=== PATIENT | male | born 1990 | race Caucasian/White ===

== ENCOUNTER 2017-04-11 00:05 | Emergency (ER) | payer OTHER, SELFPAY ==
[2017-04-11 00:08] VITALS: BP 147/79; PULSE 74; RESP 17; TEMP 36.2; O2SAT 95; BMI 30.1
--- NOTE | 2017-04-11 00:31 | RAD_ITS ---
STUDY: X-RAY - LUMBAR SPINE REASON FOR EXAM: Male, 26 years old. Back pain following heavy lifting. TECHNIQUE: 3 view(s) of the lumbar spine were obtained. COMPARISON: None FINDINGS: Normal lumbar lordosis. There is no substantial scoliosis. There is a normal alignment of the vertebrae. Normal vertebral bodies and endplates. There is mild narrowing of L4-L5 disc space. There is no demonstrated fracture. The soft tissue structures are unremarkable. There is questionable small sclerotic lesion in the right ilium close to the sacroiliac joint could be due to bone island. RAD/Lumbar Spine 2 or 3 Views IMPRESSION: Narrowing of L4-L5 disc space. No demonstrated acute osseous changes. Electronically Signed: Asad Kebede MD at 1:14 EST Tel , Service support ,
[2017-04-11] MEDS: Naproxen 500 MG Tablet PO (00:35)
--- NOTE | 2017-04-11 01:04 | ED.VISSUMM ---
- ER Visit Summary Date of Service: 04/11/17 Chief Complaint: Back injury History of Present Illness: The patient is a 26 M presenting for evaluation secondary to a back injury. Patient states that he was lifting a box at work and he had a sudden onset of severe left lower back pain. Patient states that he has some radiation to his left hip and left thigh. Pain was bad enough that he felt that he was unable to ambulate initially. Denies any bowel or bladder incontinence. Denies any prior similar injuries. Review of systems otherwise negative. Physical Examination: Vitals: Within normal limits General: Well-nourished well-developed no acute distress Head: Normocephalic atraumatic ENT: Moist mucous membranes Neck: Supple no JVD Cardiovascular: Heart regular rate and rhythm no murmurs Respiratory: Respirations nondistressed, lung sounds clear to auscultation bilaterally Abdominal: Soft, nontender, nondistended, normal bowel sounds, no evidence of abdominal masses or pulsatile mass Back: Normal to inspection, no midline tenderness to palpation, straight leg raise negative bilaterally, left sided lumbar paraspinal tenderness to palpation Extremities: Nontender, nonedematous, 2+ radial and PT pulses bilaterally symmetric Skin: Normal color no rash Neuro: 5/5 strength hip flexion, knee flexion, knee extension, dorsiflexion, plantarflexion, EHL. Sensation intact over all dermatomes of the lower extremities bilaterally, 2+ patellar and Achilles reflexes bilaterally symmetric, negative clonus bilaterally Test Results: Lumbar x-rays found to be negative per my personal interpretation Emergency Department Course and Treatment: Patient presented secondary to a back injury. Symptoms are most consistent with strain. X-rays were found to be negative. Patient was given Naprosyn in the emergency department, was instructed on use of Naprosyn ice heat and stretching at home. He will follow-up with [facility] as needed. Disposition: Discharge Impression: 1. Lumbosacral strain secondary to lifting injury at work This note was generated with [employer] dictation software. It may contain incorrect words, spelling, and punctuation that were not noted in review of the chart prior to signing ED Disposition - Plan for ED Patient: Disposition: Home or Assisted Living Chief Complaint: Back Diagnosis: Lumbosacral strain Instructions: ED Sprain Strain Lumbar Referrals: [facility] [GROUP OF PHYSICIANS] -
--- NOTE | 2017-04-11 01:08 | ED.DCSUM_ITS ---
- ER Visit Summary Date of Service: 04/11/17 Chief Complaint: Back injury History of Present Illness: The patient is a 26 M presenting for evaluation secondary to a back injury. Patient states that he was lifting a box at work and he had a sudden onset of severe left lower back pain. Patient states that he has some radiation to his left hip and left thigh. Pain was bad enough that he felt that he was unable to ambulate initially. Denies any bowel or bladder incontinence. Denies any prior similar injuries. Review of systems otherwise negative. Physical Examination: Vitals: Within normal limits General: Well-nourished well-developed no acute distress Head: Normocephalic atraumatic ENT: Moist mucous membranes Neck: Supple no JVD Cardiovascular: Heart regular rate and rhythm no murmurs Respiratory: Respirations nondistressed, lung sounds clear to auscultation bilaterally Abdominal: Soft, nontender, nondistended, normal bowel sounds, no evidence of abdominal masses or pulsatile mass Back: Normal to inspection, no midline tenderness to palpation, straight leg raise negative bilaterally, left sided lumbar paraspinal tenderness to palpation Extremities: Nontender, nonedematous, 2+ radial and PT pulses bilaterally symmetric Skin: Normal color no rash Neuro: 5/5 strength hip flexion, knee flexion, knee extension, dorsiflexion, plantarflexion, EHL. Sensation intact over all dermatomes of the lower extremities bilaterally, 2+ patellar and Achilles reflexes bilaterally symmetric , negative clonus bilaterally Test Results: Lumbar x-rays found to be negative per my personal interpretation Emergency Department Course and Treatment: Patient presented secondary to a back injury. Symptoms are most consistent with strain. X-rays were found to be negative. Patient was given Naprosyn in the emergency department, was instructed on use of Naprosyn ice heat and stretching at home. He will follow- up with [facility] as needed. Disposition: Discharge Impression: 1. Lumbosacral strain secondary to lifting injury at work This note was generated with [employer] dictation software. It may contain incorrect words, spelling, and punctuation that were not noted in review of the chart prior to signing ED Disposition - Plan for ED Patient: Disposition: Home or Assisted Living Chief Complaint: Back Diagnosis: Lumbosacral strain Instructions: ED Sprain Strain Lumbar Referrals: [facility] [GROUP OF PHYSICIANS] -
--- NOTE | 2017-04-11 01:39 | ED.RN ---
DISCHARGE INSTRUCTIONS GIVEN TO AND REVIEWED WITH PATIENT, PATIENT DENIES QUESTIONS OR CONCERNS AND VOICES UNDERSTANDING OF DISCHARGE INSTRUCTIONS. PT AMBULATES OUT OF ROOM WITHOUT DIFFICULTY.
== END 2017-04-11 01:40 | disposition home or self-care (01) ==
PROVIDERS: Emergency Provider Emergency Medicine
DX: S39.012A Strain of muscle, fascia and tendon of lower back, initial encounter (principal); Z72.0 Tobacco use; X58.XXXA Exposure to other specified factors, initial encounter; Y93.89 Activity, other specified; Y92.89 Other specified places as the place of occurrence of the external cause; Y99.0 Civilian activity done for income or pay
CPT/HCPCS: 72100; 99283

== ENCOUNTER 2017-06-27 16:04 | Emergency (ER) | payer BC, SELFPAY ==
[2017-06-27 16:05] VITALS: BP 128/90; PULSE 93; RESP 18; TEMP 36.9; O2SAT 95; BMI 30.2
[2017-06-27 16:17] VITALS: O2SAT 95
--- NOTE | 2017-06-27 16:25 | ED.VISSUMM ---
- ER Visit Summary Date of Service: 06/27/17 Chief Complaint: Wheezing History of Present Illness: The patient is a 27 M who has history of asthma presents with URI symptoms for the past 3 days. He complains of rhinorrhea, postnasal drainage, sore throat and nonproductive cough. He states his symptoms started after dental extraction. He is presently on antibiotics secondary to the dental extraction. He denies fever, chills night sweats. Denies headache, photophobia stiffness of his neck. He denies any chest discomfort. He denies leg pain, swelling discoloration. He denies any GI symptoms. Physical Examination: Vital signs are unremarkable. He is not tachycardic, tachypneic, febrile or hypoxic. Head is atraumatic nor cephalic. Pupils equal round reactive. Extra muscles are intact. TMs normal. Nares patent with clear drainage. Posterior pharynx without erythema or exudate. Uvula is midline. Postnasal drainage noted. Trach is midline. There is no stridor. Lungs revealed minimal wheezing with forced expiration the left side and right lower lobe region. There is no egophony or increased vocal fremitus. Heart is regular without murmur, gallop or rub. Insert lower extremity DVT Test Results: None Emergency Department Course and Treatment: MDI with spacer 4 puffs Treatment Plan: Patient has been instructed to use inhaler with spacer. He was informed that for polyps is equivalent to a nebulized treatment. Disposition: Discharged to home Impression: Exacerbation of asthma with bronchospasm secondary to acute viral upper respiratory infection This note was generated with [employer] dictation software. It may contain incorrect words, spelling, and punctuation that were not noted in review of the chart prior to signing ED Disposition - Plan for ED Patient: Disposition: Home or Assisted Living Chief Complaint: Asthma Instructions: ED Bronchitis Asthmatic Referrals: Gilbert Barbosa MD [Primary Care Provider] - 3-5 Days if not improving Additional Instructions: Use spacer with inhaler. 2 puffs every 2-4 hours while awake for the next 2 days. If you are having increased shortness of breath 4 puffs every 15 minutes ?3. If no improvement recommend returning to the emergency department.
[2017-06-27 16:29] VITALS: PULSE 85; RESP 16; O2SAT 95
== END 2017-06-27 16:50 | disposition home or self-care (01) ==
LOC: ED 16:38
PROVIDERS: Emergency Provider Emergency Medicine; Family Provider Family Medicine; PCP Family Medicine
DX: J06.9 Acute upper respiratory infection, unspecified (principal); J45.901 Unspecified asthma with (acute) exacerbation; Z72.0 Tobacco use
CPT/HCPCS: 94640; 99282

== ENCOUNTER → 2017-07-02 10:04 | Outpatient (CLI) | payer BC, SELFPAY ==
--- NOTE | 2017-07-02 10:09 | RAD_ITS ---
STUDY: X-RAY CHEST REASON FOR EXAM: Male, 27 years old. Cough and shortness of breath. Chest pain and chest tightness. TECHNIQUE: PA and lateral views of the chest. COMPARISON: Comparison is made with prior study dated April 28, 2014. FINDINGS: The lungs are clear and expanded. There is no demonstrated pleural abnormality. Normal size heart. Normal mediastinum and ghislaine. Normal visualized pulmonary arteries. Normal visualized aortic arch and descending thoracic aorta. Normal visualized thoracic spine. Normal visualized ribs, clavicles, and shoulders. There is no demonstrated abnormality of the visualized soft tissue structures of the upper abdomen. RAD/Chest PA and Lateral IMPRESSION: Normal x-ray examination of the chest. Electronically Signed: Cooper Brian MD at 15:56 EDT Tel [phone], Service support ,
== END ==
PROVIDERS: Family Provider Family Medicine; PCP Family Medicine; Visit Provider Family Medicine
DX: J20.9 Acute bronchitis, unspecified (principal)
CPT/HCPCS: 71046

== ENCOUNTER 2019-03-12 14:55 | Emergency (ER) | payer BC, SELFPAY ==
[2019-03-12 14:56] VITALS: BP 145/66; PULSE 106; RESP 17; TEMP 37.4; O2SAT 95; BMI 33.5
--- NOTE | 2019-03-12 15:58 | ED.VIS.EYE ---
History of Present Illness Chief Complaint: Eye Problem Informant: Patient Location: Right Eye Onset: Days Timing: Intermittent Associated Symptoms - Eyes: Pain History of injury: No Visual correction: None Narrative: Patient is a 28-year-old male presenting with right eye pain. Patient states for the past 5 days around 230 every afternoon he is getting severe pain in his right eye. He states it feels like it is behind his eye. Patient states it is a sharp sensation. The pain last for about an hour to an hour and a half. He called his PCP to make an appointment to be seen but then was told to come to the emergency room to be evaluated. Patient denies any vision changes. He denies any foreign body sensation to his eye. Patient states he also has some tingling sensation to his right upper cheek. He notes his symptoms are currently subsiding. He denies any other complaints at this time. Past Medical History - Allergies and Home Meds Allergies/Adverse Reactions: Allergies amoxicillin [Amoxicillin] Allergy (Verified 03/12/19 14:56) Other Primary Care Physician: Gilbert Sumner MD [Primary Care Provider] - Past Medical History: None Surgical History: noncontributory Smoking Status: Current some day smoker Review of Systems General: Denies: Chills, Fever, Sweats Eyes: Reports: - - right eye pain . Denies: Visual changes - bilaterally, Diplopia ENT: Denies: Rhinorrhea, Sore throat Cardiovascular: Denies: Chest pain, Palpitations Respiratory: Denies: Dyspnea, Cough, Dyspnea on exertion Gastrointestinal: Denies: Abdominal pain, Nausea, Vomiting, Diarrhea, Melena, Hematochezia Genitourinary: Denies: Dysuria, Hematuria, Frequency Musculoskeletal: Denies: Back pain, Extremity Pain Skin: Denies: Rash, Wounds Neurological: Reports: Headache, Parasthesia - right cheek . Denies: Weakness, Numbness Physical Exam Visual Acuity: right: 20/40, left: 20/20 Visual Acuity: Uncorrected Eyelid: Normal inspection Right Conjunctiva/Sclera: Normal inspection Left Conjunctiva/Sclera: Normal inspection Right Cornea: Normal inspection, No foreign body, No abrasion, No dye uptake Extraocular Motion: Normal exam, No pain Pupils: Normal accomodation, PERRL Anterior chamber: Normal exam Vital Signs/Narrative: Vital Signs Temp Pulse Resp BP Pulse Ox 03/12/19 14:56 99.3 F H 106 H 17 145/66 H 95 General: Well nourished, Well developed Head: Normocephalic, Atraumatic ENT: Moist mucous membranes, No rhinorrhea Neck: Supple, Nontender Cardiovascular: Regular rate, Regular rhythm, No murmurs Respiratory: No distress, CTA bilaterally, Chest nontender Abdomen: Soft, Nontender, Nondistended, Normal bowel sounds Back: Nontender, Normal Inspection Extremities: Nontender, No edema Skin: Normal color, No rash Neurological: Alert, Oriented x3, Cranial nerves II-XII grossly intact, Normal Strength, Normal Sensation. Negative for: Parasthesia Psychological: Normal affect Diagnostic/Tx/Re-eval - Medical Decision Making She is evaluated for headaches and eye pain. His history is actually consistent with cluster headaches. Patient has pain in the same eye every day at the same time. Patient's pain is subsiding while he is in the emergency room however he is placed on a nonrebreather. He does have further improvement of his symptoms. Ophthalmologic exam is relatively normal. He does not have any fluorescein dye uptake, signs of a foreign body or herpes keratitis. Patient not have photophobia and has a normal vision. Do not suspect a retinal detachment at this time. He has no conjunctival injection and I do not suspect acute glaucoma. I did discuss with PCP on-call who recommends starting patient on Imitrex. Patient is given a prescription of this. He is counseled oxygen is also helpful. Patient states he has oxygen at home because of his history of asthma. He will try this as needed as well. Patient is counseled on signs and symptoms requiring return to the emergency room. Patient verbalizes agreement and understand this plan. Patient discharged home in stable and improved condition. ED Disposition - Plan for ED Patient: Disposition: Home or Assisted Living Diagnosis: Cluster headache Instructions: Headache, Cluster Prescriptions: Sumatriptan [Imitrex] 20 mg NS X1 PRN #1 ea PRN Reason: Headache Prescription Printed Referrals: Gilbert Sumner MD [Primary Care Provider] - Additional Instructions: Call PCP office on Friday to schedule follow-up appointment later in the week. Return the emergency room with worsening symptoms.
[2019-03-12 16:24] VITALS: PULSE 82; RESP 14; O2SAT 100
[2019-03-12 17:29] VITALS: PULSE 97; RESP 14; O2SAT 97
[2019-03-12] MEDS: Fluorescein 1 MG STRIP 1 STRIP OPHTHALMIC (17:34)
== END 2019-03-12 17:36 | disposition home or self-care (01) ==
PROVIDERS: Emergency Provider Emergency Medicine; PCP Family Medicine
DX: G44.009 Cluster headache syndrome, unspecified, not intractable (principal); Z88.0 Allergy status to penicillin
CPT/HCPCS: 99282

== ENCOUNTER 2019-05-18 09:07 | Emergency (ER) | payer BC, SELFPAY ==
[2019-05-18 09:00] VITALS: BP 131/84; PULSE 88; RESP 18; TEMP 36.8; O2SAT 98; BMI 31.4
--- NOTE | 2019-05-18 09:15 | ED.VIS.GEN ---
History of Present Illness Chief Complaint: Back Narrative: This patient is a 29-year-old male who presents with back pain. He was rearranging and moving furniture last night. He states he got stuck like his back locked up. 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 His cousin helped him get up and onto the couch of the bed. He thought he would be able to sleep it off. Today he was unable to get up on his own due to pain. His pain is only 4 out of 10 at rest however it is severe when he attempts to sit or stand up. Pain is sharp. It is all isolated to the lower back. No fevers no back surgery no abdominal pain no urinary retention no fecal incontinence no numbness tingling or weakness no radiation to the legs. Past Medical History - Allergies and Home Meds Allergies/Adverse Reactions: Allergies amoxicillin [Amoxicillin] Allergy (Verified 03/12/19 14:56) Other Primary Care Physician: Gilbert Sumner MD [Primary Care Provider] - Past Medical History: None Surgical History: noncontributory Smoking Status: Current every day smoker Review of Systems All systems negative except as indicated General: Denies: Fever Eyes: Denies: Visual changes - bilaterally ENT: Denies: Bilateral ear pain Cardiovascular: Denies: Chest pain Respiratory: Denies: Dyspnea Gastrointestinal: Denies: Nausea, Vomiting Musculoskeletal: Reports: Back pain Skin: Denies: Rash Neurological: Denies: Headache Physical Exam Vital Signs/Narrative: Vital Signs Temp Pulse Resp BP Pulse Ox 05/18/19 09:00 98.3 F 88 18 131/84 H 98 Inital Vital Signs reviewed: Yes General: Well nourished Head: Normocephalic Eyes: EOMI ENT: Moist mucous membranes Neck: Supple Cardiovascular: Regular rate Respiratory: No distress Abdomen: Soft, Nontender, Nondistended Back: Nontender Extremities: Nontender Skin: Normal color Neurological: Alert, Normal Strength, Normal Sensation, - - 5 out of 5 strength with dorsiflexion, plantarflexion, extensor hallucis longus Psychological: Normal affect Diagnostic/Tx/Re-eval - Medical Decision Making Patient was medicated with Toradol, Norflex, oxycodone. On reevaluation he is resting comfortably but reports essentially unchanged symptoms. However at this time he does not have evidence of acute surgical pathology such as cauda equina syndrome or epidural abscess. I do not feel he meets criteria for hospitalization especially in the setting of the current COVID19 pandemic and the risk this may pose to the patient. He was provided with prescriptions for naproxen and Percocet. He was advised on supportive care. He was discharged. ED Disposition - Plan for ED Patient: Disposition: Home or Assisted Living Diagnosis: Lumbosacral strain Instructions: ED LUMBAR SPRAIN/STRAIN Prescriptions: Naproxen [Naprosyn] 500 mg PO BID PRN #20 tab Prescription Printed Oxycodone HCl/Acetaminophen [Percocet 5/325] 1 tab PO Q6H PRN PRN 3 Days #12 tab PRN Reason: Pain Prescription Printed Referrals: Gilbert Sumner MD [Primary Care Provider] -
[2019-05-18] MEDS: Ketorolac 60 MG/2 ML Vial IM (09:25)
[2019-05-18] MEDS: Orphenadrine 60 MG/2 ML Ampul IM (09:26)
[2019-05-18] MEDS: oxyCODONE 5 MG Tablet PO (09:26)
[2019-05-18 10:05] VITALS: BP 127/77; PULSE 80; RESP 16; O2SAT 98
== END 2019-05-18 10:36 | disposition home or self-care (01) ==
PROVIDERS: Emergency Provider Emergency Medicine; PCP Family Medicine
DX: S39.012A Strain of muscle, fascia and tendon of lower back, initial encounter (principal); W18.30XA Fall on same level, unspecified, initial encounter; Y93.E6 Activity, residential relocation; Y92.89 Other specified places as the place of occurrence of the external cause; Y99.9 Unspecified external cause status; F17.200 Nicotine dependence, unspecified, uncomplicated; Z88.0 Allergy status to penicillin
CPT/HCPCS: 96372; 99284

== ENCOUNTER 2021-04-24 11:46 | Inpatient (IN) | payer BC, SELFPAY ==
[2021-04-24 11:48] VITALS: BP 134/87; PULSE 86; RESP 15; TEMP 36.2; O2SAT 98; BMI 25.3
[2021-04-24 11:49] VITALS: BP 134/87; PULSE 86; RESP 15; TEMP 36.2; O2SAT 98
--- NOTE | 2021-04-24 12:41 | CT_ITS ---
STUDY: CT ABDOMEN AND PELVIS WITH CONTRAST REASON FOR EXAM: Male, 30 years old. Abdominal pain -- IV PO Contrast RADIATION DOSAGE (If Supplied By Facility): CTDIvol = ( 12.94 ) mGy, DLP = ( 655.90 ) mGycm TECHNIQUE: Transaxial images were obtained from the dome of the diaphragm to the symphysis pubis with oral contrast. Oral and amp; IV Gastrografin and amp; 100mL Isovue-300 was administered. Sagittal and coronal images were reconstructed. Individualized dose optimization techniques were used for this CT. COMPARISON: None. FINDINGS: Minimal bilateral pleural effusions. The visualized portions of the heart are within normal limits. Normal liver. Normal gallbladder and extrahepatic biliary system. Normal spleen. Normal pancreas. Normal bilateral adrenal glands. Normal right kidney. Punctate calculus in the lower pole calyx of the left kidney. Normal visualized stomach. Normal small intestine. There is diverticulosis, with thickening of the colon wall, and pericolonic inflammation changes consistent with acute diverticulitis. I suspect a 2.3 cm x 2 cm phlegmon along the antimesenteric side of the sigmoid colon. The appendix is visualized and appears normal. Normal abdominal aorta. Normal inferior vena cava. There is borderline retroperitoneal lymphadenopathy with enlarged nodes no greater than 10mm in the short axis diameter. Normal urinary bladder. Normal abdominal wall. Loss of the normal lumbar lordosis. CT/Abdomen/Pelvis WITH Contrast IMPRESSION: Minimal bilateral pleural effusions. Findings in keeping with acute sigmoid diverticulitis with possible phlegmon measuring 2.3 cm x 2 cm along the antimesenteric side of the sigmoid colon. Follow-up recommended. Punctate calcification in the lower pole calyx of the left kidney. Electronically Signed: Cooper Brian MD at 15:13 EST ,
--- NOTE | 2021-04-24 12:41 | ED.VIS.GI ---
HPI HPI - GI History of Present Illness Chief Complaint: Abd Pain Detail of Chief Complaint: Abdominal pain x9 days Informant: patient Narrative Narrative: Patient presents to the emergency department with complaint of abdominal pain that started 9 days ago. Patient rates this pain as a 2 or 3 out of 10. He states the pains been continuous. Patient states that he went to urgent care 5 days ago and they checked a urinalysis and had some microscopic blood in the urine. Patient has had history of kidney stones but states this pain feels different. Describes the pain is lower abdomen. Today he became concerned because he had some blood from his bellybutton. He denies any fevers. He denies nausea or vomiting. He denies blood in stool or black tarry stool. Patient states that over the last 3 days he has had some diarrhea off and on. No family history of inflammatory bowel disease. No family history of colon cancer. Patient states that he has lost about 30 pounds over the last 3 months unexpectedly. Prior similar symptoms: No PFSH PFSH Medical History no medical history Home Medications sumatriptan 20 mg NS X1 PRN #1 ea 03/12/19 [Rx Last Taken Unknown] naproxen 500 mg PO BID PRN #20 tab 05/18/19 [Rx Last Taken Unknown] Allergy/AdvReac Type Severity Reaction Status Date / Time amoxicillin [Amoxicillin] Allergy Other Verified 04/24/21 11:50 Family History no significant family his Surgical History no surgical history Social History Smoking Status: Current every day smoker tobacco type: cigarettes ROS ROS ED Constitutional Constitutional ED: Reports systems reviewed and no addt'l complaints, except as documented; Denies body ache(s), change in weight or chills Eyes Eyes: Denies acute decrease in peripheral vision, change in vision, double vision or loss of vision ENT ENT ED: Reports none; Denies ear pain, lip swelling, loss taste/smell, neck pain, otalgia or sore throat Cardiovascular Cardiovascular: Reports none; Denies abdominal pain, chest pain with activity, leg edema, lightheadedness, palpitations, rapid heart rate or syncope Respiratory/Chest Respiratory/Chest: Reports none; Denies change in mental status, dry cough, dyspnea, hemoptysis, shortness of breath at rest or shortness of breath with exertion Gastrointestinal Gastrointestinal: Reports none, abdominal pain and diarrhea; Denies change in stool character, hematemesis, hematochezia, melena, rectal bleeding or vomiting Genitourinary Genitourinary ED: Reports none; Denies abdominal discomfort, anuria, dysuria, genital pain or polyuria Musculoskeletal Musculoskeletal: Reports none; Denies arthralgias, back pain, difficulty walking, extremity pain, muscle weakness or myalgias Integumentary Reports none; Denies abscess or rash Neurologic Neurologic: Reports none; Denies abnormal gait, confusion, focal weakness, frequent falls, headache(s), loss of vision, numbness, paresthesias, radicular pain, vertigo or weakness Psychiatric Psychiatric: Reports systems reviewed and no addt'l complaints, except as documented and none; Denies behavioral changes, confusion, difficulty concentrating, hallucinations, suicidal ideation, tactile hallucinations or visual hallucinations Endocrine Endocrinology: Denies none, cold intolerance, excessive sweating, fatigue or heat intolerance Hematologic/Lymphatic Hematologic/Lymphatic: Reports none; Denies anemia, easy bleeding or easy bruising Allergic/Immunologic Allergic/Immunologic ED: Denies as per HPI, none, lip swelling, mouth swelling, throat swelling, tongue swelling or hives EXAM Physical Exam Const Vital Signs: 04/24/21 11:48 04/24/21 11:49 Temperature 97.2 F L 97.2 F L Temperature Source Temporal Temporal Pulse Rate 86 86 Respiratory Rate 15 15 Blood Pressure 134/87 H 134/87 H Blood Pressure Mean 102 102 Pulse Ox 98 98 Oxygen Delivery Method Room Air Room Air Positive well nourished and well developed General Appearance ED: well developed and NAD HEENT Reports TM's clear and moist mucous membranes normocephalic and atraumatic; Negative for trauma or tenderness Tympanic Membrane ED: Yes TM's clear Eyes PERRL and EOMs intact bilaterally General Eye ED: Negative for pale conjunctiva or scleral icterus Neck no lymphadenopathy, supple and no JVD General: Negative for tenderness Chest Wall inspection of chest normal and palpation of chest normal Chest: Negative for tenderness Resp normal respiratory effort and clear to auscultation bilaterally Effort and Inspection: Negative for respiratory distress or pain with movement Auscultation: Negative for rhonchi, wheezes or diminished lung sounds Cardio regular rate, regular rhythm, S1 normal heart sound, S2 normal heart sound and no murmurs Peripheral Pulses: pulses 2+ throughout GI normal to inspection, nondistended, normoactive bowel sounds, soft to palpation, non-distended and no masses GI Narrative: Patient with tenderness palpation over left lower quadrant and suprapubic region with some guarding. There is no rebound, rigidity, or peritoneal signs. Patient does have small amount of dried blood in the bellybutton but I would appreciate any lacerations. Palpation: tender Back/Spine no CVA tenderness and no thoracic nor lumbar tenderness Extremity normal to inspection General Extremety ED: Negative for edema General Extremity: Negative for edema Neuro oriented x3, CN's II-XII intact bilaterally, no sensory deficits noted and gait normal Sensorium / Orientation: awake, alert, oriented to person, oriented to place and oriented to time Motor Exam: strength 5/5 throughout and strength abnormal Psych mental status grossly normal Skin no rashes or lesions noted and no wounds MDM MDM MDM Narrative Medical decision making narrative: IV line established on arrival. Patient denies anything for pain. Lab work consistent with a slightly elevated white count of 12.8. CT scan of the abdomen pelvis showed a sigmoid diverticulitis with phlegmon. Patient was started on Cipro and Flagyl IV. Case discussed with general surgeon on-call Dr. Gómez who will admit patient to hospital. Lab Data Attestation: I reviewed the patient's lab results. Labs: Laboratory Results - last 24 hr 04/24/21 04/24/21 04/24/21 13:12 13:12 13:12 WBC 12.8 H RBC 4.64 Hgb 15.0 Hct 42.5 MCV 91.6 MCH 32.3 H MCHC 35.3 RDW Std Deviation 40.3 RDW Coeff of Claudia 12.0 Plt Count 238 MPV 11.0 Immature Gran % (Auto) 0.300 Neut % (Auto) 69.0 Lymph % (Auto) 20.2 [place] % (Auto) 9.1 Eos % (Auto) 0.9 Baso % (Auto) 0.5 Absolute Neuts (auto) 8.8 H Absolute Lymphs (auto) 2.59 Nucleated RBC % 0 Sodium 141 Potassium 3.5 Chloride 107 Carbon Dioxide 29.0 Anion Gap 5 BUN 14 Creatinine 0.89 Estim Creat Clear Calc 109.52 Est GFR (MDRD) Af Amer 129 Est GFR (MDRD) Non-Af 107 BUN/Creatinine Ratio 15.8 Glucose 86 Lactic Acid 1.0 Calcium 9.6 Total Bilirubin 0.40 AST 14 L ALT 27 Alkaline Phosphatase 88 Total Protein 7.2 Albumin 3.5 Globulin 3.7 Albumin/Globulin Ratio 0.9 Lipase 43 L Urine Color Urine Clarity Urine pH Ur Specific [place] Urine Protein Urine Glucose (UA) Urine Ketones Urine Occult Blood Urine Nitrite Urine Bilirubin Urine Urobilinogen Ur Leukocyte Esterase Urine RBC Urine WBC Ur Squamous Epith Cells Amorphous Sediment Urine Bacteria Urine Mucus 04/24/21 13:12 WBC RBC Hgb Hct MCV MCH MCHC RDW Std Deviation RDW Coeff of Claudia Plt Count MPV Immature Gran % (Auto) Neut % (Auto) Lymph % (Auto) [place] % (Auto) Eos % (Auto) Baso % (Auto) Absolute Neuts (auto) Absolute Lymphs (auto) Nucleated RBC % Sodium Potassium Chloride Carbon Dioxide Anion Gap BUN Creatinine Estim Creat Clear Calc Est GFR (MDRD) Af Amer Est GFR (MDRD) Non-Af BUN/Creatinine Ratio Glucose Lactic Acid Calcium Total Bilirubin AST ALT Alkaline Phosphatase Total Protein Albumin Globulin Albumin/Globulin Ratio Lipase Urine Color Yellow Urine Clarity Sl. Cloudy Urine pH 7.0 Ur Specific [place] 1.015 Urine Protein Negative Urine Glucose (UA) Normal Urine Ketones Negative Urine Occult Blood Negative Urine Nitrite Negative Urine Bilirubin Negative Urine Urobilinogen Normal Ur Leukocyte Esterase Negative Urine RBC 0 SEEN Urine WBC 0 SEEN Ur Squamous Epith Cells 0-5 SEEN Amorphous Sediment 1+ Urine Bacteria 0 SEEN Urine Mucus 0 SEEN Radiography Diagnostic Testing: Clinical Impression(s) from Imaging Studies Abdomen/Pelvis CT 04/24/21 12:41 IMPRESSION: Minimal bilateral pleural effusions. Findings in keeping with acute sigmoid diverticulitis with possible phlegmon measuring 2.3 cm x 2 cm along the antimesenteric side of the sigmoid colon. Follow-up recommended. Punctate calcification in the lower pole calyx of the left kidney. Electronically Signed: Cooper Brian MD at 15:13 EST , Discharge Plan Triage Chief Complaint: Abd Pain ED Provider: Tianna Arciniega Dx/Rx/DC Orders Clinical Impression: Acute diverticulitis Prescriptions: No Action sumatriptan 20 MG spray,non-aerosol 20 mg NS X1 PRN (Reason: Headache) Qty: 1 RF: 0 naproxen 500 MG tablet 500 mg PO BID PRN Qty: 20 RF: 0 Primary Care Provider: Care Physician,No Primary Referrals: Care Physician,No Primary [Primary Care Provider] - Disposition Disposition: Acute Care Hospital [facility]
[2021-04-24 13:25] LABS: Bacteria 0 SEEN /hpf (None Seen); Mucous, Urine 0 SEEN /hpf (<or=2+); Red Blood Cells-Urine 0 SEEN /hpf (0-5); White Blood Cells 0 SEEN /hpf (0-5)
[2021-04-24 13:28] LABS: Absolute Lymphocyte Count 2.59 X10^3/uL (0.83-4.51); Absolute Neutrophil Count 8.8 X10^3/uL (2.0-7.7); Basophil# 0.07 X10^3/uL; Basophil% 0.5 % (0-1); Eosinophil# 0.12 X10^3/uL; Eosinophils% 0.9 % (0-5); Hematocrit 42.5 % (40-54); Lymphocyte # 2.59 X10^3/ul (0.83-4.51); Lymphocyte % 20.2 % (19-41); Mean Corp Hgb Conc 35.3 g/dL (32-36); Mean Corpuscular Hgb 32.3 pg (27.0-32.0); Mean Corpuscular Volume 91.6 fL (80-94); Monocyte# 1.16 X10^3/uL; Monocyte% 9.1 % (0-10); NRBC Flagged by Analyzer 0 % (0-5); Neutrophil # 8.82 X10^3/uL (2.7-7.7); Platelet Count 238 K/mm3 (150-450); RBC Distribution Width SD 40.3 fl (35.1-43.9); Red Blood Count 4.64 M/mm3 (4.6-6.2); White Blood Count 12.8 K/mm3 (4.4-11.0)
[2021-04-24 13:29] LABS: Color, Urine Yellow (Yellow); Glucose, Dipstick Normal (Normal); Ketone-Dipstick Negative (Negative); Leukocyte Esterase-Dipstick Negative /ul (Negative); Nitrite-Dipstick Negative (Negative); Occult Blood-Urine Negative /ul (Negative); Protein-Dipstick Negative (Negative); Specific Gravity, Urine 1.015 (1.002-1.030); Urine Bilirubin Dipstick Negative (Negative); Urine Clarity Sl. Cloudy (Clear); Urine Urobilinogen Normal (Normal)
[2021-04-24 13:42] LABS: ALB/GLOB Ratio 0.9 RATIO (0.9-2.4); AST(SGOT) 14 U/L (15-37); Alanine Aminotransfer ALT/SGPT 27 U/L (16-61); Albumin, Serum 3.5 g/dL (3.2-5.0); Alkaline Phosphatase 88 U/L (45-117); Anion Gap 5 (5-15); BUN 14 mg/dL (7-18); BUN/Creat Ratio 15.8 RATIO (10-20); Calcium,Total 9.6 mg/dL (8.5-10.1); Chloride 107 mmol/L (98-107); Creatinine, Serum 0.89 mg/dL (0.70-1.30); EST Glomerular Filtration Rate 107 mL/min (>60); Est Glom Filt Rate - Afr Amer 129 mL/min (>60); Estimated Creatinine Clearance 109.52 ml/min; Globulin 3.7 g/dL (2.2-4.2); Glucose 86 mg/dL (74-106); Lipase 43 U/L (73-393); Potassium 3.5 mmol/L (3.5-5.1); Protein, Total 7.2 g/dL (6.4-8.2); Sodium Level 141 mmol/L (136-145)
[2021-04-24 13:43] LABS: Amorphous Sediment 1+; Squamous Epithelial Cells - UA 0-5 SEEN /hpf (0-5)
--- NOTE | 2021-04-24 14:30 | CM.ED ---
Social Work Consult: No PCP, self pay. Referral source: Self referral. Met with patient in room. Introduced self and social media executive role. Patient agreeable to speak with this social media executive. Patient confirms to not have a primary care physician. Patient open to this social media executive providing patient with list of PCP's in the area. Patient reports to have insurance through work it will be active soon. Patient denies any concerns on returning to the community. No further services requested or indicated. Nai DESOUZA, TAN
[2021-04-24 15:23] VITALS: BP 134/87; PULSE 86; RESP 15; TEMP 36.2; O2SAT 98
[2021-04-24 15:24] VITALS: BP 128/80; PULSE 78; RESP 16; O2SAT 99
[2021-04-24] MEDS: Ciprofloxacin 400 MG/200 ML BAG 200 MG IV ×2 (15:35→22:36)
[2021-04-24] MEDS: 0.9% Normal Saline 1,000 ML 125 ML IV (15:35)
--- NOTE | 2021-04-24 15:35 | PCM.HP.STD ---
HPI - General General Date of Admission: 04/24/21 HPI Narrative JIE LEMON, is a 30 M who presents to ER due to LLQ pain. CT a/p showed sigmoid diverticulitis w possible phlegmon of 2.5 cm x 2 cm. I was asked to see patient by ER physician- Dr. Coyne due to diverticulitis. Patient states he went to urgent care last has initially started have suprapubic pain that previous Friday. Patient rated the pain a 7/10 during this time. Patient states due to not having insurance he was unable to make follow-up appointments. Currently he does have insurance but he did notice some blood coming from his [facility] which concerned him so he came to the ER. Patient states his pain has ranged between 0/10-6/10 in the suprapubic region. Patient is unsure of what makes it better or worse. Patient has been eating does not stay to gets worse with eating. Patient states bowel movements have been between normal and diarrhea. Patient is never had a colonoscopy denies any family history of colon cancer and there is immediate family. Patient is unsure of any reaction to amoxicillin states his twin brother is allergic when he was a kid but unsure what the reaction was. Patient was started on Cipro/Flagyl IV in the ER for acute diverticulitis. Patient denies ever having previous episode of diverticulitis. PFSH Medical History Asthma Smoker Medical History no medical history Home Medications ibuprofen 600 - 800 mg PO DAILY PRN 04/24/21 [History Last Taken 04/23/21 20:00] Allergy/AdvReac Type Severity Reaction Status Date / Time amoxicillin [Amoxicillin] Allergy Other Verified 04/24/21 11:50 Family History no significant family his Surgical History no surgical history Social History Smoking Status: Current every day smoker tobacco type: e-cigarettes ROS Constitutional Constitutional: Reports daytime sleepiness ENT HEENT: Denies dizziness Cardiovascular Cardiovascular: Denies chest pain Respiratory/Chest Respiratory/Chest: Denies shortness of breath at rest Gastrointestinal Gastrointestinal: Reports abdominal pain, constipation, diarrhea and loose stools; Denies heartburn, hematemesis, melena, nausea or vomiting Genitourinary Genitourinary: Denies burning urination Musculoskeletal Musculoskeletal: Denies joint pain Integumentary Integumentary: Denies rash Neurologic Neurologic: Denies abnormal speech or focal weakness Endocrine Endocrinology: Denies palpitations Hematologic/Lymphatic Hematologic/Lymphatic: Reports easy bruising; Denies anemia or easy bleeding Vital Signs Vital Signs Vital Signs: 04/24/21 11:48 04/24/21 11:49 Temperature 97.2 F L 97.2 F L Temperature Source Temporal Temporal Pulse Rate 86 86 Respiratory Rate 15 15 Blood Pressure 134/87 H 134/87 H Blood Pressure Mean 102 102 Pulse Ox 98 98 Oxygen Delivery Method Room Air Room Air Weight Weight: 157 lb Body Mass Index (BMI) 25.3 Physical Exam Const alert, oriented x3 and no apparent distress HEENT normocephalic and head/scalp atraumatic Eyes no scleral icterus Neck supple Resp normal respiratory effort Cardio regular rate GI soft to palpation; Negative for non-distended Palpation: tender LLQ (No guarding or rebound) and suprapubic; Negative for guarding Extremity no clubbing, cyanosis or edema Skin Skin Narrative: Umbilicus, small amount of mucosa is seen at about 6:00 in the umbilicus, no active drainage. Neuro CN's II-XII intact bilaterally Psych mental status grossly normal Results Lab / Micro Data Result Diagrams: 04/25/21 05:15 04/25/21 05:15 Labs: Laboratory Results - last 24 hr 04/24/21 13:12: WBC 12.8 H, RBC 4.64, Hgb 15.0, Hct 42.5, MCV 91.6, MCH 32.3 H, MCHC 35.3, RDW Std Deviation 40.3, RDW Coeff of Claudia 12.0, Plt Count 238, MPV 11.0, Immature Gran % (Auto) 0.300, Neut % (Auto) 69.0, Lymph % (Auto) 20.2, [place] % (Auto) 9.1, Eos % (Auto) 0.9, Baso % (Auto) 0.5, Absolute Neuts (auto) 8.8 H, Absolute Lymphs (auto) 2.59, Nucleated RBC % 0 04/24/21 13:12: Sodium 141, Potassium 3.5, Chloride 107, Carbon Dioxide 29.0, Anion Gap 5, BUN 14, Creatinine 0.89, Estim Creat Clear Calc 109.52, Est GFR (MDRD) Af Amer 129, Est GFR (MDRD) Non-Af 107, BUN/Creatinine Ratio 15.8, Glucose 86, Calcium 9.6, Total Bilirubin 0.40, AST 14 L, ALT 27, Alkaline Phosphatase 88, Total Protein 7.2, Albumin 3.5, Globulin 3.7, Albumin/Globulin Ratio 0.9, Lipase 43 L 04/24/21 13:12: Lactic Acid 1.0 04/24/21 13:12: Urine Color Yellow, Urine Clarity Sl. Cloudy, Urine pH 7.0, Ur Specific [place] 1.015, Urine Protein Negative, Urine Glucose (UA) Normal, Urine Ketones Negative, Urine Occult Blood Negative, Urine Nitrite Negative, Urine Bilirubin Negative, Urine Urobilinogen Normal, Ur Leukocyte Esterase Negative, Urine RBC 0 SEEN, Urine WBC 0 SEEN, Ur Squamous Epith Cells 0-5 SEEN, Amorphous Sediment 1+, Urine Bacteria 0 SEEN, Urine Mucus 0 SEEN Radiology Impression Abdomen/Pelvis CT 04/24/21 12:41 IMPRESSION: Minimal bilateral pleural effusions. Findings in keeping with acute sigmoid diverticulitis with possible phlegmon measuring 2.3 cm x 2 cm along the antimesenteric side of the sigmoid colon. Follow-up recommended. Punctate calcification in the lower pole calyx of the left kidney. Electronically Signed: Cooper Brian MD at 15:13 EST Reading Location ID and State: [facility] / [place] , Service support , Assessment & Plan Assessment/Plan (1) Acute diverticulitis: PLAN: Will admit pt and plan for conservative management, and no plans for current surgery. Did review CT abdomen pelvis with the patient. Okay for clears and Hep-Lock IV fluids once good p.o. intake., once pain/wbc improves will advance diet cipro/flagyl IV?patient is checking to if he is other amoxicillin or not. pain control Theodora Gómez M.D. Pager: [phone] [facility] [address] [place] [address], [address] [place] [address] Office: [phone] Procedure Criteria Type of Procedure Procedure Type: Elective Elective Risks - COVID COVID Risk Discussion: The surgeon/proceduralist and patient have discussed in detail the risk of exposure to and/or potential harm posed by the COVID-19 virus with having a surgery/procedure at this time versus the risk of delaying the surgery/procedure. It is not possible to know either the risk of delaying the surgery or procedure or chance of getting an infection with perfect accuracy, but a joint decision was made between the patient and the surgeon/proceduralist to proceed at this time with the scheduled surgery/procedure as indicated on the consent form. Charges/Coding Visit Charges Inpatient E&M: 80918 Init Hosp L3
[2021-04-24 15:53] VITALS: BMI 25.3
[2021-04-24 16:09] VITALS: BP 130/81; PULSE 112; RESP 18; TEMP 36.9; O2SAT 100
[2021-04-24] MEDS: metroNIDAZOLE 500 MG/100 ML BAG 100 MG IV ×2 (17:14→21:19)
[2021-04-24] MEDS: 0.9% Saline Lock 10 ML Syringe IV ×2 (18:44→20:38)
[2021-04-24] MEDS: oxyCODONE 5 MG Tablet PO (20:38)
[2021-04-24 22:00] VITALS: BP 106/65; PULSE 60; RESP 18; TEMP 36.5; O2SAT 95
[2021-04-25 04:00] VITALS: BP 106/61; PULSE 69; RESP 16; TEMP 36.7; O2SAT 97
[2021-04-25] MEDS: metroNIDAZOLE 500 MG/100 ML BAG 100 MG IV (05:52)
[2021-04-25 06:00] LABS: Absolute Lymphocyte Count 2.44 X10^3/uL (0.83-4.51); Absolute Neutrophil Count 6.1 X10^3/uL (2.0-7.7); Basophil# 0.05 X10^3/uL; Basophil% 0.5 % (0-1); Eosinophil# 0.21 X10^3/uL; Eosinophils% 2.2 % (0-5); Hematocrit 39.2 % (40-54); Hemoglobin 13.8 g/dL (13.0-16.5); Lymphocyte # 2.44 X10^3/ul (0.83-4.51); Lymphocyte % 25.3 % (19-41); Mean Corp Hgb Conc 35.2 g/dL (32-36); Mean Corpuscular Hgb 31.8 pg (27.0-32.0); Mean Corpuscular Volume 90.3 fL (80-94); Mean Platelet Vol. 11.2 fl (6.2-12.0); Monocyte# 0.82 X10^3/uL; Monocyte% 8.5 % (0-10); NRBC Flagged by Analyzer 0 % (0-5); Neutrophil # 6.08 X10^3/uL (2.7-7.7); Platelet Count 221 K/mm3 (150-450); RBC Distribution Width SD 40.2 fl (35.1-43.9); Red Blood Count 4.34 M/mm3 (4.6-6.2); White Blood Count 9.7 K/mm3 (4.4-11.0)
[2021-04-25 06:21] LABS: Anion Gap 3 (5-15); BUN 10 mg/dL (7-18); BUN/Creat Ratio 12.2 RATIO (10-20); Calcium,Total 8.6 mg/dL (8.5-10.1); Chloride 108 mmol/L (98-107); Creatinine, Serum 0.82 mg/dL (0.70-1.30); EST Glomerular Filtration Rate 117 mL/min (>60); Est Glom Filt Rate - Afr Amer 142 mL/min (>60); Estimated Creatinine Clearance 118.87 ml/min; Glucose 87 mg/dL (74-106); Potassium 3.9 mmol/L (3.5-5.1); Sodium Level 140 mmol/L (136-145)
--- NOTE | 2021-04-25 06:48 | NURSING ---
04/25/21@ 0645- Called Mother Ramona per patient request to find out allergy to amoxicillin. Per Mother patient has had amoxicillin in the past without any adverse reactions or intolerances. Patients identical brother Pastor has the allergy to amoxicillin and he get hives. Information will be passed onto Dr. Gómez.
[2021-04-25 07:35] VITALS: BP 114/75; PULSE 100; RESP 18; TEMP 36.6; O2SAT 98
[2021-04-25] MEDS: oxyCODONE 5 MG Tablet PO (08:09)
--- NOTE | 2021-04-25 08:37 | PCM.PN.SRG ---
Subjective Subjective Patient tolerating clears still has some abdominal pain it is improved some. Patient does have flatus denies any bowel movements Objective Data Objective Data Vital Signs: Vital Signs Temp Pulse Resp BP Pulse Ox 97.8 F 100 18 114/75 98 04/25/21 07:35 04/25/21 07:35 04/25/21 07:35 04/25/21 07:35 04/25/21 07:35 Oxygen Delivery Method Room Air Weight: 157 lb Body Mass Index (BMI) 25.3 Intake & Output: Intake and Output for Last 24 Hours 04/23/21 04/24/21 04/25/21 23:59 23:59 23:59 Intake Total 1070.83 / 1620.83 1270 / 1270 Balance 1070.83 / 1620.83 1270 / 1270 Lab / Micro Data Result Diagrams: 04/25/21 05:15 04/25/21 05:15 Labs: Laboratory Results - last 24 hr 04/24/21 13:12: WBC 12.8 H, RBC 4.64, Hgb 15.0, Hct 42.5, MCV 91.6, MCH 32.3 H, MCHC 35.3, RDW Std Deviation 40.3, RDW Coeff of Claudia 12.0, Plt Count 238, MPV 11.0, Immature Gran % (Auto) 0.300, Neut % (Auto) 69.0, Lymph % (Auto) 20.2, [place] % (Auto) 9.1, Eos % (Auto) 0.9, Baso % (Auto) 0.5, Absolute Neuts (auto) 8.8 H, Absolute Lymphs (auto) 2.59, Nucleated RBC % 0 04/24/21 13:12: Sodium 141, Potassium 3.5, Chloride 107, Carbon Dioxide 29.0, Anion Gap 5, BUN 14, Creatinine 0.89, Estim Creat Clear Calc 109.52, Est GFR (MDRD) Af Amer 129, Est GFR (MDRD) Non-Af 107, BUN/Creatinine Ratio 15.8, Glucose 86, Calcium 9.6, Total Bilirubin 0.40, AST 14 L, ALT 27, Alkaline Phosphatase 88, Total Protein 7.2, Albumin 3.5, Globulin 3.7, Albumin/Globulin Ratio 0.9, Lipase 43 L 04/24/21 13:12: Lactic Acid 1.0 04/24/21 13:12: Urine Color Yellow, Urine Clarity Sl. Cloudy, Urine pH 7.0, Ur Specific [place] 1.015, Urine Protein Negative, Urine Glucose (UA) Normal, Urine Ketones Negative, Urine Occult Blood Negative, Urine Nitrite Negative, Urine Bilirubin Negative, Urine Urobilinogen Normal, Ur Leukocyte Esterase Negative, Urine RBC 0 SEEN, Urine WBC 0 SEEN, Ur Squamous Epith Cells 0-5 SEEN, Amorphous Sediment 1+, Urine Bacteria 0 SEEN, Urine Mucus 0 SEEN 04/25/21 05:15: WBC 9.7, RBC 4.34 L, Hgb 13.8, Hct 39.2 L, MCV 90.3, MCH 31.8, MCHC 35.2, RDW Std Deviation 40.2, RDW Coeff of Claudia 12.0, Plt Count 221, MPV 11.2, Immature Gran % (Auto) 0.500, Neut % (Auto) 63.0, Lymph % (Auto) 25.3, [place] % (Auto) 8.5, Eos % (Auto) 2.2, Baso % (Auto) 0.5, Absolute Neuts (auto) 6.1, Absolute Lymphs (auto) 2.44, Nucleated RBC % 0 04/25/21 05:15: Sodium 140, Potassium 3.9, Chloride 108 H, Carbon Dioxide 29.0, Anion Gap 3 L, BUN 10, Creatinine 0.82, Estim Creat Clear Calc 118.87, Est GFR (MDRD) Af Amer 142, Est GFR (MDRD) Non-Af 117, BUN/Creatinine Ratio 12.2, Glucose 87, Calcium 8.6 Radiography Diagnostic Testing: Radiology Impression Abdomen/Pelvis CT 04/24/21 12:41 IMPRESSION: Minimal bilateral pleural effusions. Findings in keeping with acute sigmoid diverticulitis with possible phlegmon measuring 2.3 cm x 2 cm along the antimesenteric side of the sigmoid colon. Follow-up recommended. Punctate calcification in the lower pole calyx of the left kidney. Electronically Signed: Cooper Brian MD at 15:13 EST , Physical Exam Const oriented x3 and no apparent distress Resp normal respiratory effort Cardio regular rate GI soft to palpation Inspection: Negative for abdominal distention Palpation: tender LLQ (No guarding or rebound) Assessment & Plan Assessment/Plan (1) Acute diverticulitis: PLAN: continue conservative treatment-- no current plans for surgery. continue clears, WBC count within normal limits, still has left lower quadrant pain. cipro/flagyl IV?we will change to Zosyn to see so he can be on Augmentin at home. patient does not have an allergy to amoxicillin his twin brother got hives when he was little. pain control Theodora Gómez M.D. Pager: [phone] [facility] [address] [place] [address], Outpatient [place], [address] [place] [address] Office: [phone] Charges/Coding Visit Charges Inpatient E&M: 06617 Subs Hosp L3
--- NOTE | 2021-04-25 12:49 | CHAPLAIN ---
Type of Pastoral Visit _x__ Initial Visit ___ Follow-up Visit ___ On-call Visit ___ General Patient Visit ___ Spiritual Assessment ___ Family Conference ___ Bereavement ___ Rapid Response ___ Code Blue ___ Other (describe below) Pastoral Care Referral From _x__ Patient ___ Family ___ Nurse ___ Physician ___ Impregnation Operator ___ Coating And Embossing Unit Operator ___ Other (describe below) Sacrament/Intervention _x__ Active listening ___ Anointing ___ Samaritan ___ Bereavement ___ Communion ___ Vivian exploration ___ _x__ Life review ___ Prayer ___ Reconciliation ___ Sacrament of Sick _x__ Supportive presence ___ Wedding ___ Other (describe below) Pastoral Comments patient talks about the desire to eat and then offers some life review and his personal family needs; open to spiritual care
[2021-04-25] MEDS: Piperacil/Tazobactam 3.375 GM Q8 PREMIX IV ×2 (13:46→20:31)
[2021-04-25 13:49] VITALS: BP 133/71; PULSE 72; RESP 18; TEMP 36.6; O2SAT 99
--- NOTE | 2021-04-25 15:36 | CASEMGMT ---
RN DELROY Assessment: Face to Face with pt for initial transition planning/care coordination assessment. RN CM introduced self and role at [facility], pt voices understanding and consents to assessment. Pt is A/O x4 and answers all questions in disgust. Pt asks why this CM needs to know the information. Made him aware this is to assess for any homegoing needs. He states I don't need anything. Asked if he preferred this RN CM to stop the assessment now or if he would like to continue with the questions. He just looked at the case management director. Care providers, pharmacy, and demographics verified/updated. Pt twin brother present during assessment. Admitting Dx: acute diverticulitis with phlegmon PCP: Pt denies having a PCP. Brought in a local healthcare directory pamphlet, pt states he does not want it. Specialists: Pt denies. Preferred [facility]acy: [facility] Insurance: Listed as self pay. Pt states he has insurance but he does not have the card. Prescription Benefit: yes LW/HPOA: Pt denies having a LW/DPOA and denies need for info regarding AD. LNOK: Yazmin Brothers, mother of his child Living Arrangements: Pt lives with his son and 4 dogs and 22 goldfish. Pt denied need to answer the rest of living arrangements. Transportation: Pt drives self and denies concerns with transportation. DME/HHC/SNF: Pt denies having any DME, previous HHC or SNF stays. Pt states no concerns with going home at time of dc. Pt states no further concerns/needs. CM to follow. Advised pt to ask CM if any further question/concerns/needs arise, voices understanding. Pt Goal: Home Plan: Home
[2021-04-25 20:27] VITALS: BP 108/63; PULSE 62; RESP 16; TEMP 36.6; O2SAT 98
[2021-04-26 02:27] VITALS: BP 119/72; PULSE 58; RESP 16; TEMP 36.6; O2SAT 97
[2021-04-26] MEDS: Piperacil/Tazobactam 3.375 GM Q8 PREMIX IV (05:18)
--- NOTE | 2021-04-26 08:12 | PCM.PN.SRG ---
Subjective Subjective Patient tolerating transitional diet, no abdominal pain, had a bowel movement Objective Data Objective Data Vital Signs: Vital Signs Temp Pulse Resp BP Pulse Ox 97.8 F 58 L 16 119/72 97 04/26/21 02:27 04/26/21 02:27 04/26/21 02:27 04/26/21 02:27 04/26/21 02:27 Oxygen Delivery Method Room Air Weight: 156 lb 15.506 oz Body Mass Index (BMI) 25.3 Intake & Output: Intake and Output for Last 24 Hours 04/24/21 04/25/21 04/26/21 23:59 23:59 23:59 Intake Total 1070.83 / 1620.83 2180 / 2180 450 / 450 Balance 1070.83 / 1620.83 2180 / 2180 450 / 450 Lab / Micro Data Result Diagrams: 04/25/21 05:15 04/25/21 05:15 Physical Exam Const oriented x3 and no apparent distress Resp normal respiratory effort Cardio regular rate GI soft to palpation Inspection: Negative for abdominal distention Palpation: Negative for tender Assessment & Plan Assessment/Plan (1) Acute diverticulitis: PLAN: Patient tolerated transitional diet, still has no abdominal pain. Okay to DC today We will change antibiotics to Augmentin 875 mg p.o. twice daily for an additional 9 days Theodora Gómez M.D. Pager: [phone] [facility] [address] [place] [address], [address] [place] [id number] Office: [phone] Charges/Coding Visit Charges Inpatient E&M: 54459 Disch Hosp
--- NOTE | 2021-04-26 09:08 | EX.PCM.DISCH ---
Discharge Instructions Diet Discharge Diet: - (Transitional diet/low fiber diet until follow-up in 2 weeks) Activity Discharge Activity: Return to Normal Activity and May Shower Follow Up Care Please Follow Up With: Theodora Gómez MD When: 2 weeks call the office for a follow-up appointment Test Results: Test results from this visit will be discussed in further detail at your follow-up appointment, if applicable. Discharge Plan Admission Admit Date/Time: 04/24/21 17:59 Attending Provider: Theodora Gómez Primary Care Provider: Care Physician,Maria Teresa Primary Discharge Orders/Prescriptions Prescriptions: New amoxicillin-pot clavulanate 875-125 mg tablet 1 tab PO BID Qty: 18 RF: 0 Continued ibuprofen 200 mg Tablet 600 - 800 mg PO DAILY PRN (Reason: Pain) RF: 0 Referrals / Follow Up: Care Physician,No Primary [Primary Care Provider] - Disposition Disposition (needs filled in before D/C Order can be placed): Home, Self Care
[2021-04-26 09:38] VITALS: BP 117/71; PULSE 70; RESP 18; TEMP 36.3; O2SAT 97
== END 2021-04-26 09:59 | disposition home or self-care (01) | DRG 392 ==
LOC: ED 15:25 → MS3 15:33
PROVIDERS: Admitting Provider Surgery; Emergency Provider Emergency Medicine; Visit Provider Surgery
DX: K57.32 Diverticulitis of large intestine without perforation or abscess without bleeding (principal); F17.210 Nicotine dependence, cigarettes, uncomplicated; J45.909 Unspecified asthma, uncomplicated
CPT/HCPCS: 36415; 74177; 80048; 80053; 81001; 83605; 83690; 85025; 97802; 99251; 99285; J7030; Q9967; A4216; G0463; J0744

== ENCOUNTER 2021-05-18 06:20 | Day surgery (SDC) | payer BC, SELFPAY ==
[2021-05-18] VITALS (9 sets, daily range): BP systolic 81–124; BP diastolic 50–74; PULSE 41–74; RESP 16–18; TEMP 36.3–36.5; O2SAT 94–100; BMI 25.2
[2021-05-18] MEDS: Lactated Ringers 1,000 ML 15 ML IV (06:25)
--- NOTE | 2021-05-18 07:22 | PCM.HP.BLA ---
History and Physical Date of Admission: 05/18/21 Date of Service: 05/11/21 MR#:[id number]:[id number]: JIE LEMON [facility] #:[id number]:1990 Provider:Rosalba Lund/Sex: 31/M [place] [place] Int[place] Vital Signs 05/11/21 14:29 Height 5 ft 6 in Weight: 164 lb 6 oz BMI 26.5 BP 114/73 Blood Pressure Location Rt brachial Position Sitting Respiration 16 Pulse 78 Pulse Source Monitor Temp 97.2 F L Temp Source Temporal Pulse Oximetry (%) 98 Oxygen Delivery Method room air Intake Visit Reasons: 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 Patient states after leaving the hospital last week on Friday he did have bright red blood in his stool. This happened on Friday and Friday he has not had any since. Patient states his bowel movements have ranged between constipation and diarrhea and that time currently he is having more soft/formed bowel movements. Patient denies any evidence of hemorrhoids. Patient states that this morning he did wake up some left lower quadrant pain rated at a 3-1/2/10. But states that 45 minutes it was gone patient did not have anything to eat prior to that did have some pizza bread for breakfast and no resulting pain afterwards. Patient's never had a colonoscopy he is unaware of his family history as they do not talk about that stuff. Patient is never had the COVID vaccine. ROS General General: Yes weight change and fatigue; No appetite, colon cancer or breast cancer HEENT HEENT: No difficulty swallowing, eye injury, eye surgery, swollen glands or hoarseness Endo Endocrine: No thyroid disease, diabetes mellitus, thyroid cancer, Hair loss, heat intolerance or cold intolerance Skin Skin: No rash or changing moles Musc Musculoskeletal: Yes back problems; No arthritis, rheumatoid arthritis, gout or joint pain Cardio Cardiovascular: No murmur, pacemaker, heart disease, atrial fibrillation, high blood pressure, heart attack, heart stent, palpitations, shortness of breat with exertion or chest pain Psych Psychiatric: No depression, anxiety or hearing voices Resp Respiratory: No shortness of breath, No sleep apnea, No cough, No COPD, Yes asthma, No emphysema and No wheezing Gastro Gastrointestinal: No abdominal pain, No nausea or vomiting, Yes diarrhea, Yes constipation, Yes blood in stool, No acid reflux, No hemorrhoids, No ulcers, No gallbladder problem and No black,tarry stools Cleve Hematologic: No blood thinners, No blood disorders, No bleeding, No anemia and No blood clots Neuro Neurologic: No abnormal speech Exam Const General: cooperative, healthy appearing, comfortable and no acute distress [facility] Head: normocephalic and atraumatic Neck Neck: normal visual inspection Resp Effort & Inspection: normal respiratory effort Cardio Rate: regular rate GI Inspection: non-distended Palpation: soft, no guarding and nontender Skin General: no rashes or lesions noted Neuro General: patient oriented x3 Extrem General: no clubbing, cyanosis or edema Psych Affect: normal affect COVID (Procedure Consent) Procedure Criteria Procedure Criteria: Yes Elective The surgeon/proceduralist and patient have discussed in detail the risk of exposure to and/or potential harm posed by the COVID-19 virus with having a surgery/procedure at this time versus the risk of delaying the surgery/procedure. It is not possible to know either the risk of delaying the surgery or procedure or chance of getting an infection with perfect accuracy, but a joint decision was made between the patient and the surgeon/proceduralist to proceed at this time with the scheduled surgery/procedure as indicated on the consent form. Assessment and Plan Assessment and Plan (1) Acute diverticulitis: Status: Acute (2) Blood in stool: Status: Acute Plan - Dr. Theodora Gómez MD: I have discussed the above with the patient. I have offered the patient colonoscopy for evaluation. I have explained the risks/benefits of the procedure and described the procedure. I have discussed the risks with the patient, including but not limited to: infection, bleeding, perforation of the GI tract requiring emergency surgery, inability to complete the procedure, injury to any internal organs, complications of anesthesia, etc. - the patient understands and agrees to proceed. I have answered all the patient's questions to the patient's satisfaction and the patient has no further questions. The patient has been given instructions for the colon cleansing preparation. 1 day of clears, MiraLAX Dulcolax split prep. Theodora Gómez M.D. Pager: [phone] [facility] [address] [place] [address], [address] [place] [address] Office: [phone] Plan Details Other Orders: Orders: Colonoscopy Today Coding Level of Care Code Off vis,est,level 3 Diagnoses Acute diverticulitis K57.92 Blood in stool K92.1 05/12/21 0900<Electronically signed by Theodora Gómez MD>Date Theodora Gómez MD
--- NOTE | 2021-05-18 08:06 | OP.COLON_ITS ---
Patient Name: Elkin Longoria Procedure Date: 05/18/2021 7:33 AM Date of : 1990 Age: 31 Procedure: Colonoscopy Indications: Rectal bleeding, Abnormal CT of the GI tract, Follow-up of diverticulitis Providers: Theodora Gómez MD Referring MD: Theodora Gómez MD Medicines: Monitored Anesthesia Care Patient Profile: This is a 31 year old male. Last Colonoscopy: none. The patient's first colonoscopy is today. Complications: No immediate complications. Procedure: Pre-Anesthesia Assessment: - Prior to the procedure, a History and Physical was performed, and patient medications and allergies were reviewed. The patient's tolerance of previous anesthesia was also reviewed. The risks and benefits of the procedure and the sedation options and risks were discussed with the patient. All questions were answered, and informed consent was obtained. Prior Anticoagulants: The patient has taken no previous anticoagulant or antiplatelet agents. ASA Grade Assessment: Per anesthesia. After reviewing the risks and benefits, the patient was deemed in satisfactory condition to undergo the procedure. After I obtained informed consent, the scope was passed under direct vision. Throughout the procedure, the patient's blood pressure, pulse, and oxygen saturations were monitored continuously. The colonoscope was introduced through the anus and advanced to the cecum, identified by the appendiceal orifice, ileocecal valve and palpation. The colonoscopy was performed without difficulty. The patient tolerated the procedure well. The quality of the bowel preparation was good. Scope In: 7:38:49 AM Scope Withdrawal Time 0 hours 13 minutes 35 seconds Scope Out: 7:58:50 AM Total Procedure Duration Time 0 hours 20 minutes 1 second Findings: Hemorrhoids were found on perianal exam. Non-bleeding internal hemorrhoids were found. The hemorrhoids were Grade I (internal hemorrhoids that do not prolapse). The entire examined colon appeared normal. Impression: - Hemorrhoids found on perianal exam. - Non-bleeding internal hemorrhoids. - The entire examined colon is normal. - No specimens collected. Recommendation: - Discharge patient to home. - Resume previous diet. - Continue present medications. - Repeat colonoscopy at 45 y/o for screening purposes. Procedure Code(s): --- Professional --- 63003, Colonoscopy, flexible; diagnostic, including collection of specimen(s) by brushing or washing, when performed (separate procedure) Diagnosis Code(s): --- Professional --- K64.0, First degree hemorrhoids K62.5, Hemorrhage of anus and rectum K57.32, Diverticulitis of large intestine without perforation or abscess without bleeding R93.3, Abnormal findings on diagnostic imaging of other parts of digestive tract CPT copyright 2017 [employer]. All rights reserved. The codes documented in this report are preliminary and upon supervisor adult education review may be revised to meet current compliance requirements. MD Theodora Birmingham MD 05/18/2021 8:05:31 AM This report has been signed electronically. Number of Addenda: 0 Note Initiated On: 05/18/2021 7:33 AM
--- NOTE | 2021-05-18 08:07 | OP.CCLET_ITS ---
05/18/2021 No Primary Care Physician Re : Colonoscopy procedure for Elkin Longoria Dear Care Physician This procedure was performed on Tuesday, May 18, 2021. My impressions and recommendations are as follows: Impressions : - Hemorrhoids found on perianal exam. - Non-bleeding internal hemorrhoids. - The entire examined colon is normal. - No specimens collected. Recommendations : - Discharge patient to home. - Resume previous diet. - Continue present medications. - Repeat colonoscopy at 45 y/o for screening purposes. My findings are described in the full procedure note, which is enclosed. If I can be of further assistance, please feel free to contact me at Doctor phone number(s): , Work: . Sincerely, MD Theodora Birmingham MD 05/18/2021 8:05:31 AM This report has been signed electronically.
== END 2021-05-18 23:59 | disposition home or self-care (01) ==
LOC: EN 06:21 → AC 06:22
PROVIDERS: Referring Provider Surgery; Visit Provider Surgery
PROC: 0DJD8ZZ Inspection of Lower Intestinal Tract, Via Natural or Artificial Opening Endoscopic (ICD-10-PCS; CPT 45378; principal; 2021-05-18 07:25)
DX: K57.32 Diverticulitis of large intestine without perforation or abscess without bleeding (principal); K62.5 Hemorrhage of anus and rectum; K64.0 First degree hemorrhoids; R93.3 Abnormal findings on diagnostic imaging of other parts of digestive tract; Z20.822 Contact with and (suspected) exposure to COVID-19; J45.909 Unspecified asthma, uncomplicated; Z87.19 Personal history of other diseases of the digestive system; Z87.891 Personal history of nicotine dependence
CPT/HCPCS: 45378; 87426; C9803; J7120

== ENCOUNTER 2023-02-24 08:50 | Emergency (ER) | payer OTHER, MEDICAID, SELFPAY ==
[2023-02-24 08:50] VITALS: BP 142/82; PULSE 97; RESP 16; TEMP 36.9; O2SAT 98; BMI 30.4
--- NOTE | 2023-02-24 09:13 | CT_ITS ---
INDICATION: possible seizure EXAMINATION: CT BRAIN - CT Head or Brain W/O Contrast Injection TECHNIQUE: Multiple axial images were obtained of the head without intravenous contrast. A radiation dose optimization technique was used for this scan. IV Contrast dosage and agent: None. RADIATION DOSAGE (If Supplied By Facility): CTDIvol = ( 44.99 ) mGy, DLP = ( 779.24 ) mGycm COMPARISON: Prior study dated: 02/11/2014. FINDINGS: BRAIN PARENCHYMA: No intra- or extra-axial hemorrhage. No evidence of acute infarct. No intracranial mass or mass effect. There is preservation of the orellana/white matter interface. Posterior fossa structures are unremarkable. CSF SPACES: Appropriate for age. Asymmetric ventricles likely representing a normal variant. No hydrocephalus. Basal cisterns are patent. CALVARIUM, SKULL BASE, PARANASAL SINUSES AND MASTOID AIR CELLS: Clear. No discrete lytic or blastic abnormalities. ORBITS: Both globes, extraocular muscles, optic nerves and retrobulbar fat appear unremarkable. CT/Brain/Head without Contrast IMPRESSION: No acute intracranial process. Electronically Signed: Asad Kebede MD at 10:14 EST ,
--- NOTE | 2023-02-24 09:13 | EKG12_ITS ---
Test Reason : NEURO Blood Pressure : / mmHG Vent. Rate : 057 BPM Atrial Rate : 057 BPM P-R Int : 156 ms QRS Dur : 094 ms QT Int : 376 ms P-R-T Axes : 029 052 018 degrees QTc Int : 365 ms Sinus bradycardia with sinus arrhythmia Otherwise normal ECG Confirmed by MURIEL DE PAZ, BETHANIE ([id number]), commercial production editor SHELIA LOTT ([id number]) on 02/25/2023 9:57:27 AM Referred By: Confirmed By:BETHANIE LLAMAS MD
--- NOTE | 2023-02-24 09:14 | EDS_ITS ---
HPI History of Present Illness Chief Complaint: Seizure Detail of Chief Complaint: Possible seizure unwitnessed. Informant: patient Onset/Context/Timing Onset: Today Current Severity: Mild Maximum Severity: Mild Narrative Narrative: 32-year-old male history of diverticulitis and asthma. Sitting up middle night to go the bathroom. On the toilet he became sweaty. Thinks he may have either loss conscious or nearly loss conscious. He questions if he may have had a seizure but has never had a seizure before. His mom does have a seizure d isorder. He denies any headache or head injury. He denies any recent illness. He denies any vomiting or fever. He has had some loose stools in the last 24 hours. Prior similar symptoms: No Recent Illness/Hospitalization: No PFSH PFSH Medical History Acute diverticulitis Alcohol use Asthma Back pain Depression Heartburn History of diverticulitis Injury of head and neck Marijuana use Migraine headache Restless legs Smoker Vertigo Home Medications ibuprofen 200 mg tablet 600 - 800 mg PO DAILY PRN Pain 04/24/21 [History Last Taken 04/23/21 20:00] Allergy/AdvReac Type Severity Reaction Status Date / Time No Known Allergies Allergy Verified 02/24/23 08:53 Surgical History No history of previous surgery Social History Smoking Status: Current every day smoker tobacco type: smokeless tobacco alcohol intake: current details: occasional substance use type: does not use ROS ROS ED ROS Narrative Loose stools. No fever. Review of Systems ROS Unobtainable: Denies due to encephalopathy Constitutional Constitutional ED: Denies chills or fever(s) Eyes Eyes: Denies blurry vision ENT ENT ED: Denies ear pain Cardiovascular Cardiovascular: Denies chest pain Respiratory/Chest Respiratory/Chest: Denies cough or dyspnea Gastrointestinal Gastrointestinal: Reports diarrhea; Denies abdominal pain, constipation, melena, nausea or vomiting Genitourinary Genitourinary ED: Denies dysuria or hematuria Musculoskeletal Musculoskeletal: Denies arthralgias Integumentary Denies abscess Neurologic Neurologic: Denies headache(s) Psychiatric Psychiatric: Denies anxiety Endocrine Endocrinology: Denies cold intolerance Hematologic/Lymphatic Hematologic/Lymphatic: Reports none; Denies easy bruising or lymphadenopathy Allergic/Immunologic Allergic/Immunologic ED: Denies mouth swelling, tongue swelling or urticaria EXAM Physical Exam Narrative Exam Narrative: Well-appearing 32-year-old male. Vital signs are stable afebrile. H EENT exam normal. Pupils round reactive light. Moist MEMBRANES. No bite abernathy on his tongue. No signs of trauma to his head or face. No facial droop. Normal speech. Neck nontender no lymphadenopathy. Lungs clear to auscultation bilaterally. Heart regular rhythm rate about 95 no murmur. Chest wall and ribs are nontender. Abdomen soft nontender. Back nontender. He is moving all 4 extremities. 5 out of 5 quality assurance lab technician strength. Dorsi plantarflexion intact. Neurologic exam is normal. NIH is 0. Normal speech. Normal quality assurance lab technician strength. Normal fingertip to nose. Dorsi and plantarflexion intact. He can ambulate and stand without any difficulty. [id number] normal. He is awake. Alert and oriented. Const Vital Signs: 02/24/23 08:50 Temperature 98.4 F Temperature Source Temporal Pulse Rate 97 Respiratory Rate 16 Blood Pressure 142/82 H Blood Pressure Mean 102 Pulse Ox 98 Oxygen Delivery Method Room Air Positive well nourished and well developed; Negative for cachectic, contractures or unkempt General Appearance ED: well developed and NAD; Negative for unkempt, cachectic, contractures, cyanotic, diaphoretic or pallor Nutritional Appearance: Negative for cachectic HEENT Reports moist mucous membranes; Denies dry mucous membranes Negative for tenderness Mouth ED: No dry mucous membranes Mouth: No dry mucous membranes Eyes PERRL and EOMs intact bilaterally General Eye ED: Negative for pale conjunctiva, scleral icterus or other Neck no lymphadenopathy, supple and no JVD General: Negative for tenderness Lymph Lymphatic: Negative for other Chest Wall inspection of chest normal and palpation of chest normal Chest: Negative for other Resp normal respiratory effort and clear to auscultation bilaterally Effort and Inspection: Negative for retractions Auscultation: Negative for rales, rhonchi or wheezes Cardio regular rate, regular rhythm, S1 normal heart sound, S2 normal heart sound and no murmurs Palpation: Negative for palpable S3 or palpable S4 Rate: Negative for bradycardia or tachycardic Rhythm: Negative for abnormal rhythm GI normal to inspection, nondistended, normoactive bowel sounds, non-tender, non- distended and no masses Inspection: Negative for abdominal distention Auscultation: normoactive bowel sounds Palpation: soft; Negative for tender or guarding Back/Spine no CVA tenderness General Back: Negative for CVA tenderness Cervical Spine: Negative for cervical spine tenderness Thoracic Spine / Upper Back: Negative for thoracic spinal tenderness Lumbar Spine / Lower Back: Negative for lumbar spinal tenderness Extremity normal to inspection General Extremety ED: Negative for edema, tenderness or other findings General Extremity: Negative for edema or other findings Neuro oriented x3 and CN's II-XII intact bilaterally Sensorium / Orientation: alert Motor Exam: strength 5/5 throughout; Negative for general weakness or strength abnormal Psych mental status grossly normal Appearance: Negative for unkempt Attitude: No agitated Mood & Affect: Negative for depressed, anxious or tearful Skin no rashes or lesions noted, no wounds and skin turgor normal General Skin Exam: elasticity normal; Negative for jaundice or pallor Lesions: No lesion noted Rashes: No rashes noted Trauma: Negative for abrasion Wounds: Negative for wounds noted MDM MDM MDM Narrative Medical decision making narrative: 32-year-old male that had an episode last night while going to the bathroom. He do not specifically think it was a seizure. His exam is completely normal. CAT scan of his head and labs and EKG are being obtained. Satish exam the patient is doing well at 10:40 AM. Currently his heart rate 61 and the sinus rhythm. I do not think he had a seizure. I think he runs a low heart rate and when he strains to have bowel movements he probably has a vagal response and has near syncope. Patient will drink more water. Fruits vegetables fiber and stool softener. Will follow-up with his primary care physician. We went over all his test results. History & Record Review Discussion w/independent historian: Patient Additional record(s) reviewed:: Prior inpatient record, Prior outpatient record, Prior ED visit and Prior labs Lab Data Attestation: I reviewed the patient's lab results. Lab results narrative: BC unremarkable. White count 11.2. H&H of 15 and 44. Platelets 214. Electrolytes show gap of 1. BUN and creatinine of 18 and 0.9. Glucose 115. Liver enzymes normal. CAT scan of the brain no acute abnormality. Labs: Laboratory Results - last 24 hr 02/24/23 09:25 WBC 11.2 H RBC 4.86 Hgb 15.2 Hct 44.3 MCV 91.2 MCH 31.3 MCHC 34.3 RDW Std Deviation 39.8 RDW Coeff of Claudia 11.9 Plt Count 214 MPV 11.2 Immature Gran % (Auto) 0.400 Neut % (Auto) 78.4 H Lymph % (Auto) 14.6 L Grundy % (Auto) 5.7 Eos % (Auto) 0.5 Baso % (Auto) 0.4 Absolute Neuts (auto) 8.7 H Absolute Lymphs (auto) 1.63 Nucleated RBC % 0 Sodium 140 Potassium 4.2 Chloride 113 H Carbon Dioxide 26.0 Anion Gap 1 L BUN 18 Creatinine 0.99 Estim Creat Clear Calc 96.67 Est GFR (MDRD) Af Amer 112 Est GFR (MDRD) Non-Af 93 BUN/Creatinine Ratio 18.2 Glucose 115 H Calcium 9.3 Total Bilirubin 0.20 AST 10 L ALT 23 Alkaline Phosphatase 79 Total Protein 7.0 Albumin 3.8 Globulin 3.2 Albumin/Globulin Ratio 1.2 Radiography Diagnostic Testing: Clinical Impression(s) from Imaging Studies Brain CT 02/24/23 09:13 IMPRESSION: No acute intracranial process. Electronically Signed: Asad Kebede MD at 10:14 EST , Rhythm Strip Rhythm Strip: Sinus bradycardia Rate: 57 Ectopy: None EKG Initial EKG: Attestation: I personally reviewed and interpreted this EKG as follows: Interpretation: Sinus Bradycardia and Sinus Arrythmia Comments: Sinus bradycardia rate of 57 no acute signs of NH, ischemia or block. Discharge Plan Triage Chief Complaint: Seizure ED Provider: Chris Urena Dx/Rx/DC Orders Clinical Impression: Bradycardia, sinus, Constipation, Near syncope Instructions: ED Bradycardia, ED Constipation (Adult) Prescriptions: No Action ibuprofen 200 mg Tablet 600 - 800 mg PO DAILY PRN (Reason: Pain) Primary Care Provider: Care Physician,No Primary Referrals: Gilbert Haskins MD [Med Staff - Supervisor Forming Department] - As Needed Care Physician,No Primary [Primary Care Provider] - Activity Restrictions/Additional Instructions: I think you normally run a low heart rate between 50 and 60. If you are straining to have a bowel movement due to constipation it may lower your heart rate more make you feel like you are going to pass out. Plenty of fluids, fruits and vegetables and fiber possibly with a stool softener help you have a bowel movement which may help decrease this problem. Follow-up with your primary care physician or 1 I referred you to. Disposition Disposition: Home, Self Care
[2023-02-24 09:34] LABS: Absolute Lymphocyte Count 1.63 X10^3/uL (0.83-4.51); Absolute Neutrophil Count 8.7 X10^3/uL (2.0-7.7); Basophil# 0.04 X10^3/uL; Basophil% 0.4 % (0-1); Eosinophil# 0.06 X10^3/uL; Eosinophils% 0.5 % (0-5); Hematocrit 44.3 % (40-54); Hemoglobin 15.2 g/dL (13.0-16.5); Lymphocyte # 1.63 X10^3/ul (0.83-4.51); Lymphocyte % 14.6 % (19-41); Mean Corp Hgb Conc 34.3 g/dL (32-36); Mean Corpuscular Hgb 31.3 pg (27.0-32.0); Mean Corpuscular Volume 91.2 fL (80-94); Mean Platelet Vol. 11.2 fl (6.2-12.0); Monocyte# 0.63 X10^3/uL; Monocyte% 5.7 % (0-10); NRBC Flagged by Analyzer 0 % (0-5); Neutrophil # 8.74 X10^3/uL (2.7-7.7); Neutrophil % 78.4 % (47-70); Platelet Count 214 K/mm3 (150-450); RBC Distribution Width CV 11.9 % (11.6-14.6); RBC Distribution Width SD 39.8 fl (35.1-43.9); Red Blood Count 4.86 M/mm3 (4.6-6.2); White Blood Count 11.2 K/mm3 (4.4-11.0)
[2023-02-24 09:50] LABS: ALB/GLOB Ratio 1.2 RATIO (0.9-2.4); AST(SGOT) 10 U/L (15-37); Alanine Aminotransfer ALT/SGPT 23 U/L (16-61); Albumin, Serum 3.8 g/dL (3.2-5.0); Alkaline Phosphatase 79 U/L (45-117); Anion Gap 1 (5-15); BUN 18 mg/dL (7-18); BUN/Creat Ratio 18.2 RATIO (10-20); Calcium,Total 9.3 mg/dL (8.5-10.1); Chloride 113 mmol/L (98-107); Creatinine, Serum 0.99 mg/dL (0.70-1.30); EST Glomerular Filtration Rate 93 mL/min (>60); Est Glom Filt Rate - Afr Amer 112 mL/min (>60); Estimated Creatinine Clearance 96.67 ml/min; Globulin 3.2 g/dL (2.2-4.2); Glucose 115 mg/dL (74-106); Potassium 4.2 mmol/L (3.5-5.1); Sodium Level 140 mmol/L (136-145)
== END 2023-02-24 10:48 | disposition home or self-care (01) ==
PROVIDERS: Emergency Provider Emergency Medicine; Visit Provider Emergency Medicine
DX: R55 Syncope and collapse (principal); R00.1 Bradycardia, unspecified; F17.200 Nicotine dependence, unspecified, uncomplicated; K59.00 Constipation, unspecified
CPT/HCPCS: 70450; 80053; 85025; 93005; 99284; A4216